=== PATIENT | female | born 1955 | race Asian ===

== ENCOUNTER 2021-01-14 13:36 | Outpatient (CLI) | payer OTHER | END 2021-01-14 13:37 | disposition home or self-care (01) | LOC: CSHRAD 13:36 | PROVIDERS: ATTEND Internal Medicine | DX: M25.552 Pain in left hip (principal) ==

== ENCOUNTER 2021-07-07 09:06 | Outpatient (CLI) | payer MEDICARE | END 2021-07-07 09:07 | disposition home or self-care (01) | LOC: CSHMAMMO 09:06 | PROVIDERS: ATTEND Internal Medicine | DX: Z12.31 Encounter for screening mammogram for malignant neoplasm of breast (principal) | CPT/HCPCS: 77063; 77067 ==

== ENCOUNTER 2021-10-07 11:50 | Outpatient (CLI) | payer MEDICARE | END 2021-10-07 11:51 | disposition home or self-care (01) | LOC: CSHCT 11:50 | PROVIDERS: ATTEND Internal Medicine | DX: M25.552 Pain in left hip (principal); M16.12 Unilateral primary osteoarthritis, left hip; D25.9 Leiomyoma of uterus, unspecified; K63.9 Disease of intestine, unspecified ==

== ENCOUNTER 2022-08-26 09:20 | Outpatient (CLI) | payer MEDICARE, OTHER | END 2022-08-26 09:21 | disposition home or self-care (01) | LOC: CSHMAMMO 09:20 | PROVIDERS: ATTEND Obstetrics & Gynecology | DX: Z12.31 Encounter for screening mammogram for malignant neoplasm of breast (principal); Z13.820 Encounter for screening for osteoporosis; M85.89 Other specified disorders of bone density and structure, multiple sites | CPT/HCPCS: 77063; 77067; 77080 ==